=== PATIENT | female | born 1980 | race Caucasian/White ===

== ENCOUNTER 2024-09-05 08:17 | Emergency (ER) | payer OTHER, SELFPAY ==
[2024-09-05 08:21] VITALS: BP 185/115
[2024-09-05 08:37] VITALS: BMI 34.0
[2024-09-05 08:42] VITALS: BP 158/101
--- NOTE | 2024-09-05 08:49 | ED.CVA ---
History of Present Illness
General
Chief Complaint: CVA/TIA Symptoms
Source: patient
Exam Limitations: none
Time Seen by Provider: 09/05/24 08:30
Nursing documentation reviewed up to this point in time: agreed with
Onset of Stroke Symptoms
Onset of symptoms known: Yes
Date of onset of symptoms: 02/28/24
History of Present Illness
History of Present Illness:
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
to the left side of the face. Tried contacting her neurologist who is Dr. Yung without success. Denies any pain no chest pain shortness of breath no numbness or weakness into her extremities.
Review of Systems
Review of Systems
Allergies reviewed?: Yes
All Other Systems: ROS reviewed and negative except as documented in HPI and ROS
Phy Exam
Physical Exam
Physical Exam:
GENERAL: Alert , in no apparent distress
EYE: pupils equal and reactive
NECK: Supple, no significant adenopathy.
ENT: Drooping of the right side of the face o/p clr, mmm.
CARDIAC: Regular rate and rhythm .
LUNGS: Clear breath sounds bilaterally, no acute respiratory distress, no wheezes/rales/rhonchi
ABDOMEN: Soft, without focal tenderness, no r/g, no cvat
NEUROLOGICAL: Alert and oriented, drooping of the right side of the face including the eyebrow. Normal speech 5-5 upper and lower extremity strength normal sensation with palpating bilaterally. Normal finger-nose and [id number]. No pronator
drift
SKIN: Warm and dry, skin intact.
MUSCULOSKELETAL: No edema, well perfused.
PSYCH: Normal and appropriate interaction.
Course
Orders/Labs/Results
Orders:
Orders
09/05/24 08:45
CT Head W/o Iv Contrast Urgent
Comment:
Reason For Exam: right sided facial weakness, blurred, progressive
09/05/24 08:46
EKG [Electrocardiogram (*1)] Urgent
Reason for Study: TIA/Stroke
09/05/24 08:47
EKG- Treatment ONCE
Test Result ONCE
09/05/24 08:49
Visual Acuity- Treatment ONCE
09/05/24 08:50
Beta Hcg Serum Qualitative Screen [HCG, Serum Qualitative Screen] Urgent
Complete Blood Count/With Diff Urgent
Comprehensive Metabolic Panel Urgent
Abnormal Lab Results
09/05/24
08:50
Chloride 108 H mmol/L
(98-107)
09/05/24 08:50
09/05/24 08:50
Vital Signs
Initial and Last Documented VS:
Initial Vital Signs
Temp Pulse Resp BP Pulse Ox
98.6 F 84 18 185/115 99
09/05/24 08:21 09/05/24 08:21 09/05/24 08:21 09/05/24 08:21 09/05/24 08:21
Last Documented Vital Signs
Temp Pulse Resp BP Pulse Ox
98.6 F 84 18 145/84 95
09/05/24 08:21 09/05/24 08:21 09/05/24 08:21 09/05/24 11:00 09/05/24 11:00
MDM/Problems Addressed
MDM/Problems Addressed:
44-year-old female presenting to the emergency department today with concerns of right sided blurred vision since yesterday noon time. Has had some ongoing right sided facial drooping and weakness over the past 6 months and has been following with
neurology. Has a planned MRI in 1 month. On physical examination the patient does have right-sided facial weakness including the right eyebrow. Remainder of neurologic examination normal. Labs normal here vital signs normal head CT without
emergent findings. Case discussed with neurology recommending close outpatient follow-up. Return precautions given. No significant injury to the right eye on fluorescein examination.
*Pulse Oximetry
SaO2: 99
Oxygen Mode of Delivery: Room air
Patient hypoxic: no (95)
*Critical Care Note
Total Time (30-74mins, 75-104mins- exclusive of procedures): Not Applicable
ED Attending Note
-
Portions of this chart may have been created with voice recognition software.� Occasional wrong word or��sound alike� substitutions may have occurred due to the inherent limitations of voice recognition software.
Discharge Plan
Departure
Patient Disposition: Home (Routine Discharge)
Date of Disposition: 09/05/24
Time of Disposition: 11:32
Patient with high blood pressure during this ER visit?: No
Condition: Good
Covid-19: Not Applicable
Discharge Problem:
Facial nerve palsy
Instructions: Hathaway's Palsy (DC)
Referrals:
Oskar Pinto, [Family Provider, Family Practice]
Activity Restrictions/Additional Instructions:
You came to the emergency department today with concerns of blurred vision and pressure sensation to the face. Here you have a reassuring assessment. Please follow closely for your MRI as well as with ophthalmology for any ongoing eye symptoms.
Return for any worsening, new or concerning symptoms.
Interventions
Interventions:
*Risk Screen - Suicide Last Done: 09/05/24 08:21
*General Assessment Last Done: 09/05/24 08:21
*Neglect/Abuse Screening Last Done: 09/05/24 08:28
*ED- Fall Risk Assessment Last Done: 09/05/24 08:37
*ED COVID-19 Vaccine History Last Done: 09/05/24 08:21
ED- Pulmonary Assessment Last Done: 09/05/24 08:37
ED- Neurological Assessment Last Done: 09/05/24 08:37
ED- Cardiac Assessment Last Done: 09/05/24 08:37
Discharge Date and Time
Print Language: [id number]
[2024-09-05 08:59] LABS: Hematocrit 39.7 % (37.0-47.0); Hemoglobin 13.1 g/dL (12.0-16.0); Mean Corp Hgb Conc. 33.0 g/dL (33.0-37.0); Mean Corpuscular Volume 84.1 fL (81.0-99.0); Nucleated Red Blood Cells % 0 %; Platelet Count 289 10^3/uL (130-400); Red Cell Dist. Width 12.9 % (11.5-14.5)
[2024-09-05 09:00] VITALS: BP 139/81
[2024-09-05 09:19] LABS: HCG, Serum Qualitative Screen Negative
[2024-09-05 09:24] LABS: ALT (SGPT) 35 U/L (0-35); AST (SGOT) 22 U/L (14-36); Albumin 4.4 g/dl (3.5-5.0); Alkaline Phosphatase 60 U/L (38-126); Blood Urea Nitrogen 17 mg/dl (7-17); Calcium 9.7 mg/dl (8.4-10.2); Carbon Dioxide 24 mmol/L (22-30); Chloride 108 mmol/L (98-107); Estimated Creatinine Clearance 95 ml/min; Glucose 96 mg/dl (70-99); Potassium 3.9 mmol/L (3.5-5.1); Sodium 138 mmol/L (135-145); Total Protein 7.4 g/dl (6.3-8.2); eGFR > 60.00
[2024-09-05 10:00] VITALS: BP 138/85
[2024-09-05 11:00] VITALS: BP 145/84
== END 2024-09-05 11:44 | disposition home or self-care (01) ==
LOC: EMR 08:17
PROVIDERS: Physician Assistant; EMERGENCY PHYSICIAN Emergency Medicine; FAMILY PHYSICIAN Family Medicine
DX: G51.0 Bell's palsy (principal)
CPT/HCPCS: 99284; 70450; 80053; 84703; 85025; 93005

== ENCOUNTER → 2024-09-13 19:04 | Outpatient (REF) | payer OTHER, SELFPAY | LOC: MRI 3T 19:04 | PROVIDERS: ATTENDING PHYSICIAN Specialist; FAMILY PHYSICIAN Family Medicine | DX: R29.810 Facial weakness (principal) | CPT/HCPCS: 70553; A9575 ==